=== PATIENT | male | born 1980 | race Caucasian/White ===

== ENCOUNTER 2019-02-03 16:25 | Inpatient (IN) | payer MEDICAID, MEDICARE, OTHER ==
[~2019-02-03] VITALS: Ht 167.6 cm; Wt 77.0 kg
[~2019-02-03 16:25] MED LIST: ALBU8HFA IH; DIVA500T52 PO; MIRT15 PO; OLAN10TA3 PO
[2019-02-03 17:22] LABS: BASOPHILS % (AUTO) 0.9 % (0.0-2.0); EOSINOPHILS % (AUTO) 6.9 % (1.0-6.0); HEMATOCRIT 38.2 % (41-53); HEMOGLOBIN 12.3 g/dL (13.5-17.5); LYMPHOCYTES # (AUTO) 1.4 K/uL (1.0-4.8); LYMPHOCYTES % (AUTO) 31.9 % (22.0-44.0); MEAN CORPUSCULAR HEMOGLOBIN 28.7 pg (26.0-34.0); MEAN CORPUSCULAR HGB CONC 32.1 G/dL (31.0-37.0); MEAN CORPUSCULAR VOLUME 90 fL (80-100); MONOCYTES # (AUTO) 0.4 K/uL (0.1-1.0); MONOCYTES % (AUTO) 9.7 % (2.0-9.0); NEUTROPHILS # (AUTO) 2.3 K/uL (1.8-7.7); NEUTROPHILS % (AUTO) 50.6 % (40.0-70.0); PLATELET COUNT (AUTO) 315 K/uL (150-450); RED BLOOD CELL COUNT(AUTO) 4.26 MIL/uL (4.50-5.90); RED CELL DISTRIBUTION WIDTH 14.4 % (11.5-14.5)
[2019-02-03 17:31] LABS: ANION GAP 8 mmol/L (8-16); CALCIUM, TOTAL 8.8 mg/dL (8.8-10.5); CARBON DIOXIDE 26 mmol/L (22-29); CHLORIDE 105 mmol/L (98-107); CREATININE 0.93 mg/dL (0.60-1.30); GLOMERULAR FILTR. RATE CALC > 60 mL/min (>60); GLUCOSE,RANDOM 95 mg/dL (70-110); POTASSIUM 4.4 mmol/L (3.5-5.1); SODIUM SERUM 139 mmol/L (136-145); UREA NITROGEN, BLOOD 16 mg/dL (7-18)
[2019-02-03 17:39] LABS: ALANINE AMINOTRANSFERASE 15 U/L (12-78); ALKALINE PHOSPHATASE 129 U/L (46-116); ASPARTATE AMINOTRANSFERASE 18 U/L (15-37); BILIRUBIN,TOTAL 0.1 mg/dL (0.1-1.0); TOTAL PROTEIN, SERUM 6.6 g/dL (6.4-8.2)
[2019-02-03 19:17] LABS: AMPHET/METH SCREEN,URINE NEGATIVE (NEGATIVE); BARBITURATE SCREEN, URINE NEGATIVE (NEGATIVE); BENZODIAZEPINES SCREEN,URINE NEGATIVE (NEGATIVE); CANNABINOID SCREEN,URINE NEGATIVE (NEGATIVE); COCAINE SCREEN,URINE NEGATIVE (NEGATIVE); METHADONE SCREEN, URINE NEGATIVE (NEGATIVE); OPIATE SCREEN,URINE NEGATIVE (NEGATIVE); PHENCYCLIDINE SCREEN,URINE NEGATIVE (NEGATIVE)
[2019-02-03] MEDS ORDERED: LORazepam 2 MG TABLET PO ONE (21:00)
[2019-02-03] MEDS ORDERED: HALOPERIDOL 5 MG TABLET PO ONE (21:00)
[2019-02-03] MEDS ORDERED: IBUPROFEN 600 MG TABLET PO ONE (21:00)
[2019-02-03] MEDS ORDERED: DiphenhydrAMINE HCL 50 MG CAPSULE PO ONE (21:00)
[2019-02-04] MEDS ORDERED: ACETAMINOPHEN 325 MG TABLET PO ONE (04:15)
[2019-02-04 05:50] LABS: CHOL/HDL RATIO 2.9 (4.2-7.3)
[2019-02-04] MEDS: HALOPERIDOL 5 MG TABLET PO PRN (14:28)
[2019-02-04] MEDS: LORazepam 2 MG TABLET PO PRN (14:28)
[2019-02-04] MEDS ORDERED: DOCUSATE SODIUM 100 MG CAPSULE PO PRN (15:45)
[2019-02-04] MEDS ORDERED: ACETAMINOPHEN 325 MG TABLET PO PRN (15:45)
[2019-02-04] MEDS ORDERED: PETROLATUM,WHITE 28 GM JELLY TP PRN (15:45)
[2019-02-04] MEDS ORDERED: MAG HYDROX/AL HYDROX/SIMETH ES 30 ML SUSPENSION UDCUP PO PRN (15:45)
[2019-02-04] MEDS ORDERED: GuaiFENesin/D-METHORPHAN [SUGAR-FREE] 200-20MG/10 ML SYRUP UDCUP PO PRN (15:45)
[2019-02-04] MEDS ORDERED: MAGNESIUM HYDROXIDE SUSPENSION 30 ML UDCUP PO PRN (15:45)
[2019-02-04] MEDS ORDERED: ONDANSETRON HCL 4 MG TABLET PO PRN (15:45)
[2019-02-04] MEDS ORDERED: LOPERAMIDE HCL 2 MG CAPSULE PO PRN (15:45)
[2019-02-04] MEDS ORDERED: IBUPROFEN 400 MG TABLET PO PRN (15:45)
[2019-02-04] MEDS ORDERED: CloNIDine HCL 0.1 MG TABLET PO PRN (15:45)
[2019-02-04] MEDS: ALBUTEROL SULFATE HFA 90 MCG/PUFF 8 GM INHALER IH PRN (16:20)
[2019-02-04 16:51] VITALS: BP 126/88
[2019-02-04] MEDS: MIRTAZAPINE 15 MG TABLET PO SCH (21:00)
[2019-02-04] MEDS: DIVALPROEX SODIUM 500 MG ER TABLET PO SCH (21:00)
[2019-02-04] MEDS: OLANZapine 10 MG TABLET PO SCH (21:01)
[2019-02-05 08:15] VITALS: BP 143/91
[2019-02-05] MEDS: HALOPERIDOL 5 MG TABLET PO PRN (08:26)
[2019-02-05] MEDS: LORazepam 2 MG TABLET PO PRN (08:26)
[2019-02-05] MEDS: ALBUTEROL SULFATE HFA 90 MCG/PUFF 8 GM INHALER IH PRN (09:04)
[2019-02-05 16:45] VITALS: BP 139/80
[2019-02-05] MEDS: OLANZapine 10 MG TABLET PO SCH (20:29)
[2019-02-05] MEDS: MIRTAZAPINE 15 MG TABLET PO SCH (20:29)
[2019-02-05] MEDS: DIVALPROEX SODIUM 500 MG ER TABLET PO SCH (20:29)
[2019-02-06] MEDS: HALOPERIDOL 5 MG TABLET PO PRN (04:14)
[2019-02-06] MEDS: LORazepam 2 MG TABLET PO PRN (04:14)
[2019-02-06 08:10] VITALS: BP 129/79
[2019-02-06 17:02] VITALS: BP 107/62
[2019-02-06] MEDS: MIRTAZAPINE 15 MG TABLET PO SCH (20:07)
[2019-02-06] MEDS: OLANZapine 10 MG TABLET PO SCH (20:07)
[2019-02-06] MEDS: DIVALPROEX SODIUM 500 MG ER TABLET PO SCH (20:07)
[2019-02-07 03:49] VITALS: BP 149/90
[2019-02-07 08:21] VITALS: BP 157/83
[2019-02-07] MEDS: LORazepam 2 MG TABLET PO PRN (08:59)
[2019-02-07] MEDS: NICOTINE 14 MG/24 HOUR PATCH TD PRN (08:59)
[2019-02-07] MEDS: HALOPERIDOL 5 MG TABLET PO PRN (08:59)
[2019-02-07] MEDS ORDERED: MIRT30 PO (13:03)
[2019-02-07] MEDS: ALBUTEROL SULFATE HFA 90 MCG/PUFF 8 GM INHALER IH PRN (15:50)
[2019-02-07] MEDS: MIRTAZAPINE 30 MG TABLET PO SCH (20:21)
[2019-02-07] MEDS: DIVALPROEX SODIUM 500 MG ER TABLET PO SCH (20:21)
[2019-02-07] MEDS: OLANZapine 10 MG TABLET PO SCH (20:21)
[2019-02-08] MEDS: HALOPERIDOL 5 MG TABLET PO PRN ×2 (08:12→14:08)
[2019-02-08] MEDS: NICOTINE 14 MG/24 HOUR PATCH TD PRN (08:12)
[2019-02-08] MEDS: LORazepam 2 MG TABLET PO PRN ×2 (08:13→14:07)
[2019-02-08 10:47] VITALS: BP 123/89
[2019-02-08] MEDS: ALBUTEROL SULFATE HFA 90 MCG/PUFF 8 GM INHALER IH PRN (12:35)
[2019-02-08] MEDS ORDERED: DICLOFENAC SODIUM 1% 100 GM GEL [2GM] TP PRN (14:30)
[2019-02-08 16:00] VITALS: BP 146/79
[2019-02-08] MEDS: DIVALPROEX SODIUM 500 MG ER TABLET PO SCH (20:38)
[2019-02-08] MEDS: MIRTAZAPINE 30 MG TABLET PO SCH (20:38)
[2019-02-08] MEDS: OLANZapine 10 MG TABLET PO SCH (20:38)
[2019-02-08] MEDS: ZOLPIDEM TARTRATE 10 MG TABLET PO PRN (21:24)
[2019-02-09 09:16] VITALS: BP 128/95
[2019-02-09 17:00] VITALS: BP 124/81
[2019-02-09] MEDS: MIRTAZAPINE 30 MG TABLET PO SCH (20:13)
[2019-02-09] MEDS: OLANZapine 10 MG TABLET PO SCH (20:13)
[2019-02-09] MEDS: DIVALPROEX SODIUM 500 MG ER TABLET PO SCH (20:14)
[2019-02-10] MEDS: ZOLPIDEM TARTRATE 10 MG TABLET PO PRN (00:01)
[2019-02-10 00:13] VITALS: BP 169/86
[2019-02-10 08:13] VITALS: BP 149/97
[2019-02-10 18:51] VITALS: BP 136/93
[2019-02-10] MEDS: OLANZapine 10 MG TABLET PO SCH (21:00)
[2019-02-10] MEDS: DIVALPROEX SODIUM 500 MG ER TABLET PO SCH (21:00)
[2019-02-10] MEDS: MIRTAZAPINE 30 MG TABLET PO SCH (21:00)
[2019-02-11 08:50] VITALS: BP 147/75
[2019-02-11 18:49] VITALS: BP 126/82
[2019-02-11] MEDS: DIVALPROEX SODIUM 500 MG ER TABLET PO SCH (20:36)
[2019-02-11] MEDS: MIRTAZAPINE 30 MG TABLET PO SCH (20:36)
[2019-02-11] MEDS: OLANZapine 10 MG TABLET PO SCH (20:36)
[2019-02-12 09:01] VITALS: BP 153/95
[2019-02-12] MEDS: ALBUTEROL SULFATE HFA 90 MCG/PUFF 8 GM INHALER IH PRN (11:33)
[2019-02-12 19:26] VITALS: BP 128/81
[2019-02-12] MEDS: MIRTAZAPINE 30 MG TABLET PO SCH (20:07)
[2019-02-12] MEDS: ZOLPIDEM TARTRATE 10 MG TABLET PO PRN (20:07)
[2019-02-12] MEDS: DIVALPROEX SODIUM 500 MG ER TABLET PO SCH (20:08)
[2019-02-12] MEDS: OLANZapine 10 MG TABLET PO SCH (20:08)
[2019-02-13 08:10] VITALS: BP 121/76
[2019-02-13] MEDS: MIRTAZAPINE 30 MG TABLET PO SCH (20:10)
[2019-02-13] MEDS: OLANZapine 10 MG TABLET PO SCH (20:10)
[2019-02-13] MEDS: DIVALPROEX SODIUM 500 MG ER TABLET PO SCH (20:11)
[2019-02-14 08:30] VITALS: BP 155/89
[2019-02-14] MEDS: LORazepam 2 MG TABLET PO PRN (09:38)
[2019-02-14] MEDS: HALOPERIDOL 5 MG TABLET PO PRN (09:38)
[2019-02-14] MEDS: OLANZapine 10 MG TABLET PO SCH (21:27)
[2019-02-14] MEDS: DIVALPROEX SODIUM 500 MG ER TABLET PO SCH (21:27)
[2019-02-14] MEDS: MIRTAZAPINE 30 MG TABLET PO SCH (21:28)
[2019-02-14 22:18] VITALS: BP 139/93
[2019-02-15 04:30] VITALS: BP 131/74
[2019-02-15] MEDS: LORazepam 2 MG TABLET PO PRN ×2 (04:35→10:35)
[2019-02-15 08:10] VITALS: BP 91/63
[2019-02-15] MEDS: HALOPERIDOL 5 MG TABLET PO PRN (10:35)
[2019-02-15 19:02] VITALS: BP 145/87
[2019-02-15] MEDS: DIVALPROEX SODIUM 500 MG ER TABLET PO SCH (20:24)
[2019-02-15] MEDS: OLANZapine 10 MG TABLET PO SCH (20:25)
[2019-02-15] MEDS: MIRTAZAPINE 30 MG TABLET PO SCH (20:25)
[2019-02-16] MEDS: ALBUTEROL SULFATE HFA 90 MCG/PUFF 8 GM INHALER IH PRN (08:50)
[2019-02-16 09:24] VITALS: BP 141/89
[2019-02-16] MEDS: LORazepam 2 MG TABLET PO PRN (15:42)
[2019-02-16] MEDS: HALOPERIDOL 5 MG TABLET PO PRN (15:42)
[2019-02-16 16:00] VITALS: BP 150/78
[2019-02-16] MEDS: DIVALPROEX SODIUM 500 MG DR TABLET PO SCH (20:29)
[2019-02-16] MEDS: OLANZapine 10 MG TABLET PO SCH (21:35)
[2019-02-16] MEDS: MIRTAZAPINE 30 MG TABLET PO SCH (21:35)
[2019-02-17 09:22] VITALS: BP 149/92
[2019-02-17] MEDS: DIVALPROEX SODIUM 500 MG DR TABLET PO SCH ×2 (10:22→21:58)
[2019-02-17] MEDS: ALBUTEROL SULFATE HFA 90 MCG/PUFF 8 GM INHALER IH PRN (15:45)
[2019-02-17 17:00] VITALS: BP 135/86
[2019-02-17] MEDS: OLANZapine 10 MG TABLET PO SCH (22:00)
[2019-02-17] MEDS: MIRTAZAPINE 30 MG TABLET PO SCH (22:00)
[2019-02-18] MEDS: DIVALPROEX SODIUM 500 MG DR TABLET PO SCH ×2 (08:01→21:12)
[2019-02-18] MEDS: LORazepam 2 MG TABLET PO PRN (08:01)
[2019-02-18 08:05] VITALS: BP 132/79
[2019-02-18 17:31] VITALS: BP 131/88
[2019-02-18] MEDS: MIRTAZAPINE 30 MG TABLET PO SCH (21:12)
[2019-02-18] MEDS: OLANZapine 10 MG TABLET PO SCH (21:12)
[2019-02-19] MEDS: DIVALPROEX SODIUM 500 MG DR TABLET PO SCH (08:14)
[2019-02-19 08:40] VITALS: BP 132/78
[2019-02-19] MEDS: NICOTINE 14 MG/24 HOUR PATCH TD PRN (09:13)
[2019-02-19] MEDS ORDERED: DIVA-78 PO (15:04)
== END 2019-02-19 15:45 | disposition home or self-care (01) | DRG 750 ==
LOC: EMS 16:26 → 3EC 02-04 16:14
DX: F20.0 Paranoid schizophrenia (principal); D64.9 Anemia, unspecified; F10.10 Alcohol abuse, uncomplicated; J44.9 Chronic obstructive pulmonary disease, unspecified; I10 Essential (primary) hypertension; Z79.899 Other long term (current) drug therapy
CPT/HCPCS: 97162; G0480; J3535

== ENCOUNTER 2019-03-10 14:37 | Emergency (ER) | payer MEDICAID, OTHER ==
[~2019-03-10] VITALS: Ht 162.6 cm; Wt 76.4 kg
[~2019-03-10 14:37] MED LIST changes: -ALBU8HFA IH; +DIVA-78 PO; -MIRT15 PO; +MIRT30 PO
[2019-03-10] MEDS ORDERED: IBUPROFEN 600 MG TABLET PO ONE (15:15)
[2019-03-10 16:25] VITALS: BP 119/72
== END 2019-03-10 17:02 | disposition home or self-care (01) ==
LOC: EMS 14:38
DX: S83.92XA Sprain of unspecified site of left knee, initial encounter (principal); J45.909 Unspecified asthma, uncomplicated; F20.9 Schizophrenia, unspecified; W19.XXXA Unspecified fall, initial encounter; Y93.01 Activity, walking, marching and hiking; Y92.89 Other specified places as the place of occurrence of the external cause; Y99.8 Other external cause status